=== PATIENT | male | born 1980 | race Caucasian/White ===

== ENCOUNTER 2024-01-28 22:01 | Emergency (ER) | payer OTHER ==
[2024-01-28 22:13] VITALS: BP 160/67; PULSE 63; RESP 20; TEMP 98.6; BMI 26.6
== END 2024-01-28 22:48 | disposition home or self-care (01) ==
LOC: JERFT 22:01 → JER 22:01 → JERFT 22:48
DX: S00.03XA Contusion of scalp, initial encounter (principal); M25.511 Pain in right shoulder; W10.9XXA Fall (on) (from) unspecified stairs and steps, initial encounter
CPT/HCPCS: 99281-25